=== PATIENT | male | born 2000 | race Caucasian/White ===

== ENCOUNTER 2020-06-22 13:25 | Emergency (ER) | payer BC, OTHER ==
[~2020-06-22] VITALS: Ht 177.8 cm; Wt 63.6 kg
[2020-06-22 13:55] VITALS: BP 161/96
== END 2020-06-22 16:12 | disposition home or self-care (01) ==
LOC: ER 13:25
DX: S00.211A Abrasion of right eyelid and periocular area, initial encounter (principal); F07.81 Postconcussional syndrome; R51.9 Headache, unspecified; X58.XXXA Exposure to other specified factors, initial encounter; Y93.89 Activity, other specified; Y92.89 Other specified places as the place of occurrence of the external cause; Y99.8 Other external cause status
CPT/HCPCS: 99284

== ENCOUNTER 2021-08-08 21:05 | Emergency (ER) | payer BC, OTHER ==
[~2021-08-08] VITALS: Ht 177.8 cm; Wt 63.6 kg
[2021-08-08 21:40] VITALS: BP 140/89
--- NOTE | 2021-08-08 22:12 | NUR ---
pt presents to the ed with c/o left facial and arm numbness x one day followed by rhinorrhea. the pt also c/o headaches and numbness to the left eye, ear pressure and multiple other symptoms.
--- NOTE | 2021-08-08 22:14 | NUR ---
The pt is a/o nad, skin w/d
== END 2021-08-09 00:26 | disposition home or self-care (01) ==
LOC: ER 21:06
DX: R20.0 Anesthesia of skin (principal); R09.81 Nasal congestion; R09.89 Other specified symptoms and signs involving the circulatory and respiratory systems; R68.84 Jaw pain
CPT/HCPCS: 99281

== ENCOUNTER 2021-09-04 15:03 | Emergency (ER) | payer BC ==
[~2021-09-04] VITALS: Ht 177.8 cm; Wt 65.5 kg
[2021-09-04 15:31] VITALS: BP 146/86
== END 2021-09-04 16:51 | disposition home or self-care (01) ==
LOC: ER 15:03
DX: R20.0 Anesthesia of skin (principal); Z90.49 Acquired absence of other specified parts of digestive tract
CPT/HCPCS: 70450; 72125; 99284